=== PATIENT | female | born 1995 | race Caucasian/White ===

== ENCOUNTER 2023-02-12 04:37 | Inpatient (IN) | payer BC ==
[2023-02-12 05:12] VITALS: BMI 43.4
[2023-02-12] MEDS ORDERED: hydrALAZINE 20 MG/ML VIAL SLOW IVP PRN (05:27)
[2023-02-12 06:02] LABS: ALT (SGPT) 202 U/L (8-55); AST (SGOT) 186 U/L (5-34); Albumin 3.2 g/dL (3.5-5.0); Alkaline Phosphatase 224 U/L (40-110); Anion Gap 15 mmol/L (10-20); BUN (Urea Nitrogen) 8 mg/dL (7.0-18.7); Bilirubin, Total 0.8 mg/dL (0.2-1.2); Calc. Creatinine Clearance 188 mL/min (70-130); Calcium 8.8 mg/dL (7.8-10.44); Carbon Dioxide 17 mmol/L (22-29); Chloride 107 mmol/L (98-107); Estimated GFR 114; Globulin 3.4 g/dL (2.4-3.5); Glucose 92 mg/dL (70-105); Protein, Total 6.6 g/dL (6.0-8.3); Sodium 135 mmol/L (136-145)
[2023-02-12] MEDS ORDERED: Labetalol HCl 100 MG/20 ML VIAL ONE (06:08)
[2023-02-12 06:10] LABS: Bilirubin Neg (Negative); Blood, Urine 10 (Negative); Clarity Clear (Clear); Glucose, Urine (Dipstick) Normal (Negative); Ketone, Urine Negative (Negative); Leukocyte Negative (Negative); Nitrite Negative (Negative); Protein, Urine (Dipstick) 100 mg/dl (Neg-Trace); Specific Gravity, Urine 1.015 (1.005-1.030); Urobilinogen Normal mg/dL (Less than 2)
[2023-02-12] MEDS ORDERED: Labetalol HCl 100 MG/20 ML VIAL SLOW IVP PRN ×3 (06:15)
[2023-02-12 06:19] LABS: #Basophils 0.1 10x3/uL (0.0-0.2); #Eosinphils 0.1 10x3/uL (0.0-0.5); #Monocytes 1.3 10x3/uL (0.0-1.1); #Neutrophils 12.5 10x3/uL (1.5-8.4); %Basophils 0.4 % (0.0-2.0); %Eosinophils 0.5 % (0.0-6.0); %Lymphocytes 8.5 % (18.0-47.0); %Monocytes 8.3 % (0.0-10.0); Hematocrit 35.1 % (34.9-44.5); Hemoglobin 11.6 g/dL (12.0-15.5); Mean Corpuscular Hemoglobin 25.4 pg (27.0-33.0); Platelet Count 104 10x3/uL (150-450); RBC Distribution Width 14.6 % (11.5-14.5); Red Blood Cell (RBC) Count 4.56 10x6/uL (3.90-5.03); White Blood Cell (WBC) Count 15.7 10x3/uL (3.5-10.5)
[2023-02-12 06:20] LABS: Platelet Adequacy Comment Appears Decreased
[2023-02-12 06:21] LABS: Microcytosis SLIGHT = 6-15 cells (100X) (0-5/hpf)
[2023-02-12] MEDS ORDERED: Calcium Gluc 4.6 MEQ/10 ML (100 MG/ML) SLOW IVP PRN (06:32)
[2023-02-12] MEDS ORDERED: Lorazepam 2 MG/ML VIAL SLOW IVP PRN (06:32)
[2023-02-12] MEDS ORDERED: Magnesium Sulfate 20 gm/500 ml 20 GM/500 ML BAG ONE (06:35)
[2023-02-12] MEDS ORDERED: Magnesium Sulfate 20 gm/500 ml 20 GM/500 ML BAG IVPB SCH (06:45)
[2023-02-12 07:04] LABS: Bacteria/HPF None Seen HPF (None Seen); CAUTI Indications for Culture Pregnancy; RBC/HPF 0-3 HPF (0-3); Squamous Epithelial 0-3 HPF (0-3); Transitional Epithelial 0-3 HPF (None Seen); WBC/HPF 0-3 HPF (0-3)
[2023-02-12 07:06] LABS: Urine Culture Reflex Yes Yes
[2023-02-12] MEDS ORDERED: CEFAZOLIN 2 GM VIAL ONE (07:07)
[2023-02-12] MEDS ORDERED: fentaNYL 50 mcg/mL 1 mL Vial SLOW IVP PRN (07:15)
[2023-02-12] MEDS ORDERED: Moisturizing Cream (Eucerin) 113 GM JAR TOP PRN (07:15)
[2023-02-12] MEDS ORDERED: diphenhydrAMINE 50 MG/ML VIAL IVP PRN (07:15)
[2023-02-12] MEDS ORDERED: Promethazine HCl 25 MG SUPP PR PRN (07:15)
[2023-02-12] MEDS ORDERED: Meperidine HCl/PF 25 MG/ML VIAL SLOW IVP PRN (07:15)
[2023-02-12] MEDS ORDERED: Ondansetron PF 4 MG/2 ML Vial IVP PRN ×2 (07:15)
[2023-02-12] MEDS ORDERED: Promethazine HCl 25 MG/ML VIAL IM PRN (07:15)
[2023-02-12] MEDS ORDERED: Naloxone HCl 0.4 mg/ml Vial IV PRN (07:15)
[2023-02-12] MEDS ORDERED: NO NARCS FOR 12 HRS FS PRN (07:15)
[2023-02-12] MEDS ORDERED: Naloxone HCl 0.4 mg/ml Vial IVP PRN ×2 (07:15)
[2023-02-12] MEDS ORDERED: PHENYLEPHRINE-NS 100 MCG/ML 10 ML SYRINGE ONE (07:20)
[2023-02-12] MEDS ORDERED: Morphine PF 10 MG/10 ML VIAL ONE (07:20)
[2023-02-12] MEDS ORDERED: Oxytocin 10 UNITS/ML VIAL ONE (07:20)
[2023-02-12] MEDS ORDERED: ePHEDrine Sulfate 50 MG/10 ML VIAL ONE (07:20)
[2023-02-12] MEDS ORDERED: Ondansetron PF 4 MG/2 ML Vial ONE (07:20)
[2023-02-12] MEDS ORDERED: Phenylephrine 40 MG/NS 250 ML 250 ML ONE (07:21)
[2023-02-12] MEDS ORDERED: Ketorolac Tromethamine 30 MG/ML VIAL ONE (07:21)
[2023-02-12] MEDS ORDERED: Famotidine/PF 20 mg/2ml Vial SLOW IVP PRN (07:23)
[2023-02-12] MEDS ORDERED: Bicitra 30 ML UDCUP PO PRN (07:23)
[2023-02-12] MEDS ORDERED: Tranexamic Acid 1,000 MG/10 ML VIAL IVP PRN (07:29)
[2023-02-12] MEDS ORDERED: Carboprost 250 MCG/ML AMP IM PRN (07:29)
[2023-02-12] MEDS ORDERED: Misoprostol 200 MCG TAB PR PRN (07:29)
[2023-02-12] MEDS ORDERED: Diphenoxylate HCl/Atropine Tablet PO PRN (07:29)
[2023-02-12] MEDS ORDERED: CEFAZOLIN 2 GM in Sodium Chloride 0.9% 100 ML IVPB SCH (07:30)
[2023-02-12] MEDS ORDERED: Oxytocin 30 units/NS 500 ML 500 ML IV SCH (07:30)
[2023-02-12] MEDS ORDERED: Phytonadione Neonatal 1 MG/0.5 ML AMP ONE (07:36)
[2023-02-12] MEDS ORDERED: Erythromycin Base 0.5% Oint 1 GM TUBE ONE (07:36)
[2023-02-12] MEDS ORDERED: Tranexamic Acid 1,000 MG/10 ML VIAL ONE (07:53)
[2023-02-12] MEDS ORDERED: PROPOFOL 20 ML ONE (07:57)
[2023-02-12] MEDS ORDERED: Lidocaine 1% PF 5 ML VIAL ONE (07:57)
[2023-02-12] MEDS ORDERED: Midazolam HCl 2 mg/2 ml Vial ONE (08:02)
[2023-02-12] MEDS ORDERED: Fentanyl 250 MCG/5 ML VIAL ONE (08:02)
[2023-02-12 08:04] LABS: INR-International Normal Ratio 0.8; PTT 28.4 sec (22.0-33.0); Prothrombin Time 8.7 sec (9.5-12.1)
[2023-02-12 08:44] LABS: HBSAg Index 0.17 S/CO (0-0.99); Hep B Surf Ag - L&D Non-Reactive S/CO (NonReactive)
[2023-02-12 08:46] LABS: Syphilis Antibody Nonreactive (Nonreactive); Syphilis Antibody Index 0.03 S/CO (<1.00 Non-Reactive)
[2023-02-12 12:45] LABS: ALT (SGPT) 207 U/L (8-55); AST (SGOT) 184 U/L (5-34); Albumin 2.8 g/dL (3.5-5.0); Alkaline Phosphatase 186 U/L (40-110); Anion Gap 11 mmol/L (10-20); BUN (Urea Nitrogen) 9 mg/dL (7.0-18.7); Bilirubin, Total 0.7 mg/dL (0.2-1.2); Calc. Creatinine Clearance 202 mL/min (70-130); Calcium 7.9 mg/dL (7.8-10.44); Carbon Dioxide 19 mmol/L (22-29); Chloride 108 mmol/L (98-107); Estimated GFR 122; Globulin 2.7 g/dL (2.4-3.5); Glucose 91 mg/dL (70-105); Protein, Total 5.5 g/dL (6.0-8.3); Sodium 134 mmol/L (136-145)
[2023-02-12 12:56] LABS: Magnesium 5.8 mg/dL (1.6-2.6)
[2023-02-12 13:00] LABS: Hematocrit 30.5 % (34.9-44.5); Mean Corpuscular HGB CONC 32.8 g/dL (32.0-36.0); Mean Corpuscular Hemoglobin 25.5 pg (27.0-33.0); Mean Corpuscular Volume 77.8 fl (81.6-98.3); Mean Platelet Volume 12.9 fl (7.4-10.4); Platelet Count 95 10x3/uL (150-450); RBC Distribution Width 14.7 % (11.5-14.5); Red Blood Cell (RBC) Count 3.92 10x6/uL (3.90-5.03); White Blood Cell (WBC) Count 15.5 10x3/uL (3.5-10.5)
[2023-02-12] MEDS ORDERED: Ketorolac Tromethamine 30 MG/ML VIAL IVP SCH (14:05)
[2023-02-12] MEDS ORDERED: Ketorolac Tromethamine 30 MG/ML VIAL IVP PRN (14:10)
[2023-02-12] MEDS: Magnesium Sulfate 20 gm/500 ml 20 GM/500 ML BAG IVPB SCH (15:12)
[2023-02-12] MEDS ORDERED: HYDROcodone/Acetaminophen 5/325 mg Tablet PO PRN ×2 (19:15)
[2023-02-12] MEDS: Lactated Ringer's 1,000 ML IV SCH (20:01)
[2023-02-12] MEDS: fentaNYL 50 mcg/mL 1 mL Vial SLOW IVP PRN (20:10)
[2023-02-12 21:35] LABS: Hematocrit 32.3 % (34.9-44.5); Hemoglobin 10.5 g/dL (12.0-15.5); Mean Corpuscular HGB CONC 32.5 g/dL (32.0-36.0); Mean Corpuscular Hemoglobin 25.3 pg (27.0-33.0); Mean Corpuscular Volume 77.8 fl (81.6-98.3); Mean Platelet Volume 12.3 fl (7.4-10.4); Platelet Count 88 10x3/uL (150-450); RBC Distribution Width 14.9 % (11.5-14.5); Red Blood Cell (RBC) Count 4.15 10x6/uL (3.90-5.03); White Blood Cell (WBC) Count 12.7 10x3/uL (3.5-10.5)
[2023-02-12 21:41] LABS: ALT (SGPT) 189 U/L (8-55); AST (SGOT) 131 U/L (5-34); Albumin 2.8 g/dL (3.5-5.0); Alkaline Phosphatase 194 U/L (40-110); Anion Gap 10 mmol/L (10-20); BUN (Urea Nitrogen) 7 mg/dL (7.0-18.7); Bilirubin, Total 0.6 mg/dL (0.2-1.2); Calc. Creatinine Clearance 199 mL/min (70-130); Calcium 7.2 mg/dL (7.8-10.44); Carbon Dioxide 22 mmol/L (22-29); Chloride 105 mmol/L (98-107); Estimated GFR 121; Glucose 98 mg/dL (70-105); Potassium 4.3 mmol/L (3.5-5.1); Protein, Total 5.8 g/dL (6.0-8.3); Sodium 133 mmol/L (136-145)
[2023-02-12 22:13] LABS: Magnesium 6.7 mg/dL (1.6-2.6)
[2023-02-13] MEDS: fentaNYL 50 mcg/mL 1 mL Vial SLOW IVP PRN (01:07)
[2023-02-13] MEDS: Magnesium Sulfate 20 gm/500 ml 20 GM/500 ML BAG IVPB SCH (02:02)
[2023-02-13 06:20] LABS: Hematocrit 29.3 % (34.9-44.5); Hemoglobin 9.6 g/dL (12.0-15.5); Mean Corpuscular HGB CONC 32.8 g/dL (32.0-36.0); Mean Corpuscular Hemoglobin 25.5 pg (27.0-33.0); Mean Corpuscular Volume 77.7 fl (81.6-98.3); Mean Platelet Volume 12.9 fl (7.4-10.4); Platelet Count 101 10x3/uL (150-450); RBC Distribution Width 15.1 % (11.5-14.5); Red Blood Cell (RBC) Count 3.77 10x6/uL (3.90-5.03); White Blood Cell (WBC) Count 12.4 10x3/uL (3.5-10.5)
[2023-02-13 06:25] LABS: ALT (SGPT) 152 U/L (8-55); AST (SGOT) 79 U/L (5-34); Albumin 2.6 g/dL (3.5-5.0); Alkaline Phosphatase 181 U/L (40-110); Anion Gap 11 mmol/L (10-20); BUN (Urea Nitrogen) 5 mg/dL (7.0-18.7); Bilirubin, Total 0.5 mg/dL (0.2-1.2); Calc. Creatinine Clearance 214 mL/min (70-130); Calcium 7.1 mg/dL (7.8-10.44); Carbon Dioxide 21 mmol/L (22-29); Chloride 107 mmol/L (98-107); Estimated GFR 124; Globulin 2.8 g/dL (2.4-3.5); Glucose 90 mg/dL (70-105); Potassium 4.3 mmol/L (3.5-5.1); Protein, Total 5.4 g/dL (6.0-8.3); Sodium 135 mmol/L (136-145)
[2023-02-13 06:27] LABS: Magnesium 6.1 mg/dL (1.6-2.6)
[2023-02-13] MEDS ORDERED: diphenhydrAMINE 25 MG CAP PO PRN (07:24)
[2023-02-13] MEDS ORDERED: Acetaminophen 325 MG TAB PO PRN (07:24)
[2023-02-13] MEDS ORDERED: hydrALAZINE 20 MG/ML VIAL SLOW IVP PRN (07:24)
[2023-02-13] MEDS ORDERED: Bisacodyl 10 MG SUPP PR PRN (07:24)
[2023-02-13] MEDS ORDERED: Boostrix 0.5 ML (Tdap) VIAL (>/=7 yrs of age) IM ONE (07:24)
[2023-02-13] MEDS ORDERED: Simethicone Chewable 80 MG TAB PO PRN (07:24)
[2023-02-13] MEDS ORDERED: HYDROcodone/Acetaminophen 5/325 mg Tablet PO PRN (07:24)
[2023-02-13] MEDS ORDERED: Lanolin Ointment 7 GM TUBE TOP PRN (07:24)
[2023-02-13] MEDS: HYDROcodone/Acetaminophen 5/325 mg Tablet PO PRN ×4 (09:10→21:50)
[2023-02-13] MEDS: Ferrous Sulfate 325 MG TAB PO SCH (09:29)
[2023-02-13] MEDS: Prenatal Vitamin 1 TAB PO SCH (09:29)
[2023-02-13] MEDS: Docusate 100 MG CAP PO SCH (09:29)
[2023-02-13] MEDS: Ibuprofen 800 MG TAB PO SCH (13:09)
[2023-02-14 04:06] LABS: Hematocrit 30.3 % (34.9-44.5); Hemoglobin 9.7 g/dL (12.0-15.5); Mean Corpuscular Hemoglobin 25.5 pg (27.0-33.0); Mean Corpuscular Volume 79.7 fl (81.6-98.3); Mean Platelet Volume 12.4 fl (7.4-10.4); Platelet Count 123 10x3/uL (150-450); RBC Distribution Width 15.6 % (11.5-14.5); White Blood Cell (WBC) Count 14.1 10x3/uL (3.5-10.5)
[2023-02-14] MEDS: Ibuprofen 800 MG TAB PO SCH ×4 (05:21→22:12)
[2023-02-14] MEDS: Ferrous Sulfate 325 MG TAB PO SCH ×3 (05:24→22:12)
[2023-02-14] MEDS: Docusate 100 MG CAP PO SCH ×3 (05:24→22:12)
[2023-02-14] MEDS: HYDROcodone/Acetaminophen 5/325 mg Tablet PO PRN ×5 (06:37→22:12)
[2023-02-14] MEDS: Prenatal Vitamin 1 TAB PO SCH (09:15)
[2023-02-15] MEDS: Ibuprofen 800 MG TAB PO SCH (06:26)
[2023-02-15] MEDS: HYDROcodone/Acetaminophen 5/325 mg Tablet PO PRN ×2 (06:26→10:23)
[2023-02-15] MEDS: Ferrous Sulfate 325 MG TAB PO SCH (08:48)
[2023-02-15] MEDS: Prenatal Vitamin 1 TAB PO SCH (08:48)
[2023-02-15] MEDS: Docusate 100 MG CAP PO SCH (08:48)
[2023-02-15 11:22] VITALS: BP 135/92; TEMP 98.7
== END 2023-02-15 14:42 | disposition home or self-care (01) | DRG 788 ==
LOC: CSHLD/OP 04:37 → CSHLD 06:59 → CSHPED 02-13 07:45
PROVIDERS: ADMIT Obstetrics & Gynecology; ATTEND Obstetrics & Gynecology
PROC: 10D00Z1 Extraction of Products of Conception, Low, Open Approach (ICD-10-PCS; principal; 2023-02-12)
PROC: 3E033XZ Introduction of Vasopressor into Peripheral Vein, Percutaneous Approach (ICD-10-PCS; 2023-02-12)
DX: O14.14 Severe pre-eclampsia complicating childbirth (principal); Z3A.36 36 weeks gestation of pregnancy; Z37.0 Single live birth
CPT/HCPCS: 36415; 51702; 80053; 81001; 82570; 83735; 84156; 85025; 85027; 85610; 85730; 86780; 86850; 86900; 86901; 87077; 87086; 87340; 99285; J1885; J2250; J2274; J2405; J2590; J2704; J3010; J3475